=== PATIENT | male | born 1975 | race Caucasian/White ===

== ENCOUNTER 2024-04-24 23:31 | Emergency (ER) | payer OTHER ==
[2024-04-24 23:39] VITALS: BP 107/65; PULSE 70; RESP 18; TEMP 98; BMI 26.0
[2024-04-25] MEDS ORDERED: BACITRACIN ZINC 15 GM TUBE TOPICAL OINTMENT TP ONE (00:18)
== END 2024-04-25 01:00 | disposition home or self-care (01) ==
LOC: JER 23:31
DX: L02.92 Furuncle, unspecified (principal)
CPT/HCPCS: 99283-25

== ENCOUNTER 2024-08-17 09:39 | Emergency (ER) | payer OTHER ==
[2024-08-17 09:49] VITALS: BMI 19.6
[2024-08-17] MEDS ORDERED: ONDANSETRON 4 MG/2 ML VIAL ONE (09:59)
[2024-08-17] MEDS ORDERED: morphine SULFATE 4 MG/ML VIAL ONE (09:59)
[2024-08-17] MEDS: ONDANSETRON *ODT* 4 MG TABLET SL ONE (10:00)
[2024-08-17] MEDS: morphine CARPU-JECT 4 MG/1 ML DISP.SYRIN IVPUSH ONE (10:00)
[2024-08-17] MEDS ORDERED: KETOROLAC TROMETHAMINE 30 MG/1 ML VIAL ONE (10:04)
[2024-08-17] MEDS ORDERED: KETOROLAC TROMETHAMINE 30 MG/1 ML VIAL IM ONE (10:04)
[2024-08-17] MEDS: KETOROLAC TROMETHAMINE 15 MG/ML VIAL IVPUSH ONE (10:10)
[2024-08-17] MEDS ORDERED: HYDROmorphone HCL CARPU-JECT 2 MG/1 ML DISP.SYRIN ONE (10:10)
[2024-08-17] MEDS: HYDROmorphone HCl 2 MG/ML VIAL IVPUSH ONE (10:15)
[2024-08-17 10:57] LABS: HEMOGLOBIN 14.6 GM/dL (11.7-16.9); MCH 32.4 pg (25.7-33.7); MEAN CELL VOLUME 95.2 fl (80-96); MEAN PLT VOLUME 8.9 fl (7.5-11.1); PLATELET COUNT 336 10^3/uL (134-434); RBC 4.52 M/mm3 (4.00-5.60); WHITE BLOOD COUNT 17.9 K/mm3 (4.0-10.0)
[2024-08-17 11:04] LABS: POTASSIUM 4.7 mmol/L (3.5-5.1)
[2024-08-17 11:06] LABS: ALBUMIN 3.7 g/dl (3.4-5.0); BLOOD UREA NITROGEN 12.4 mg/dL (7-18)
[2024-08-17 11:07] LABS: CALCIUM 9.8 mg/dL (8.5-10.1)
[2024-08-17 11:09] LABS: CREATININE 1.4 mg/dL (0.55-1.3)
[2024-08-17 11:11] LABS: BILIRUBIN,TOTAL 0.3 mg/dL (0.2-1); TOT PROT 6.8 g/dl (6.4-8.2)
[2024-08-17] MEDS: KETOROLAC TROMETHAMINE 30 MG/1 ML VIAL IVPUSH ONE (11:24)
[2024-08-17 12:15] LABS: EPI CELLS 4 /uL (0-25.1); HYALINE CASTS 0 /uL (0-3.1); PH,URINE 5.5 (5.0-8.0); URINE APPEARANCE CLOUDY; URINE BACTERIA 1 /uL (0-1359); URINE BILIRUBIN NEGATIVE (NEGATIVE); URINE COLOR YELLOW; URINE GLUCOSE (UA) NEGATIVE (NEGATIVE); URINE KETONE NEGATIVE (NEGATIVE); URINE LEUK ESTERASE NEGATIVE (NEGATIVE); URINE NITRITE NEGATIVE (NEGATIVE); URINE PROTEIN TRACE (NEGATIVE); URINE RBC 18 /uL (0-23.9); URINE WBC 4 /uL (0-25.8)
[2024-08-17 12:52] LABS: ANISOCYTOSIS 0; MACROCYTOSIS 0
[2024-08-17 12:57] LABS: PLATELET ESTIMATE ADEQUATE
[2024-08-17 14:05] LABS: HIV INTERPRETATION NEGATIVE (NEGATIVE)
[2024-08-17 14:38] VITALS: BP 117/68; PULSE 68; RESP 17; TEMP 97.9
== END 2024-08-17 14:30 | disposition home or self-care (01) ==
LOC: JER 09:39
PROC: 3E033NZ Introduction of Analgesics, Hypnotics, Sedatives into Peripheral Vein, Percutaneous Approach (ICD-10-PCS; principal; 2024-08-17)
PROC: 3E0333Z Introduction of Anti-inflammatory into Peripheral Vein, Percutaneous Approach (ICD-10-PCS; 2024-08-17)
PROC: 3E033NZ Introduction of Analgesics, Hypnotics, Sedatives into Peripheral Vein, Percutaneous Approach (ICD-10-PCS; 2024-08-17)
DX: R20.0 Anesthesia of skin (principal); R11.0 Nausea; R10.31 Right lower quadrant pain
CPT/HCPCS: 36415; 74176-TC; 80053; 81003; 85025; 86803; 87086; 87389; 93005; 93010; 99285-25; Q0162